=== PATIENT | male | born 2000 | race Caucasian/White ===

== ENCOUNTER 2024-02-20 15:41 | Emergency (ER) | payer BC, SELFPAY ==
[2024-02-20] MEDS ORDERED: CYCLOBENZAPRINE 10 MG TAB ONE (16:20)
--- NOTE | 2024-02-20 17:27 | RAD REPORT ---
Exam:Shoulder Right 2+ Views History: Right shoulder pain Findings: No fracture or dislocation seen
--- NOTE | 2024-02-20 17:27 | RAD REPORT ---
Exam:C Spine Ap/Lat CLINICAL INDICATION: Neck pain Findings: No fracture or dislocation seen
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
[2024-02-20] MEDS ORDERED: IBUPROFEN 400 MG TAB ONE (17:48)
[2024-02-20 21:04] VITALS: BP 137/65; TEMP 97.3; O2SAT 100
== END 2024-02-20 17:52 | disposition home or self-care (01) ==
LOC: ER 15:41
DX: M54.2 Cervicalgia (principal); M25.511 Pain in right shoulder; V49.40XA Driver injured in collision with unspecified motor vehicles in traffic accident, initial encounter
CPT/HCPCS: 72040; 99283

== ENCOUNTER 2024-05-28 15:01 | Emergency (ER) | payer BC ==
[2024-05-28] MEDS ORDERED: FAMOTIDINE 20 MG/2 ML VIAL IV ONE (15:08)
[2024-05-28 15:12] LABS: Absolute Basophils 0.1 K/uL (0-0.5); Absolute Eosinophils 0.5 K/uL (0-0.5); Absolute Lymphocytes (CBC) 2.7 K/uL (0.7-4.9); Absolute Neutrophil 7.1 K/uL (1.8-8.0); Basophils % 0.6 % (0-1.3); Eosinophils % 4.1 % (0-4.4); Hematocrit 44.5 % (39.6-49.0); Hemoglobin 15.5 g/dL (13.6-17.9); MCH 31.6 pg (27.0-35.0); MCHC 34.9 g/dL (32.0-36.0); MCV 90.5 fL (80-100); Monocytes % 9.1 % (3.3-12.3); Neutrophils % 62.2 % (41.7-73.7); Platelets 327 thou/uL (152-406); RBC Red Blood Cell Count 4.91 M/uL (4.33-5.43); Red Cell Distribution Width 13.4 % (12.1-15.2)
[2024-05-28 15:27] LABS: Anion Gap 9.4 mEq/L (5.0-15.0); Potassium 3.4 mEq/L (3.5-5.1)
--- NOTE | 2024-05-28 18:23 | EDPHYS ---
Physician Documentation [facility] Name: Abdulaziz Gomez Age: 24 yrs Sex: Male : 2000 Arrival Date: 05/28/2024 Time: 15:01 Bed 2 Private MD: ED Physician Rigo Killian HPI: 05/28 18:13 This 24 yrs old Male presents to ER via EMS with complaints of Allergic Reaction. ms3 18:13 Abdulaziz Gomez a 24-year-old male who presents to the Emergency Department with ms3 anaphylaxis. He reports that approximately two hours ago, he took propranolol, which resulted in full facial swelling, including the eyes, lips, tongue, and throat, as well as a full-body rash and diaphoresis. Initial treatment included administration of 0.3 mg of epinephrine intramuscularly. Upon arrival at the Emergency Department, due to persistent throat swelling, he received an additional 0.3 mg of epinephrine. Patient was given 125 ml SoluMedrol IV, and 50 mg Benadryl. He was also started on IV fluids, totaling approximately 600 ml. The patient reports improvement in throat symptoms and absence of wheezing, but he remains very tired. Earlier in the day, he received a flu shot.. Historical: - Allergies: 15:07 Propranolol; ss - Home Meds: 15:12 ibuprofen 800 mg Oral tablet as needed [Active]; melatonin 5 mg Oral capsule nightly iw [Active]; sertraline 100 mg oral tablet every morning [Active]; sertraline 50 mg oral tablet nightly [Active]; trazodone 100 mg Oral tablet every morning [Active]; trazodone 50 mg Oral tablet every day at bedtime [Active]; propranolol 10 mg Oral tablet daily [Active]; - PMHx: 15:07 Anxiety; chondral lesion on right knee (February 19); depressive disorder; left knee ss instability (growth hormone defi); PTSD; scoliosis (growth hormone defi); - PSHx: 15:07 Adenoid excision; Tonsillectomy; ss - Immunization history:: Adult Immunizations unknown. - Infectious Disease History:: Denies. - Social history:: Smoking status: Reported history of juuling and/or vaping. ROS: 18:13 Constitutional: Negative for fever, and chills. Cardiovascular: Negative for chest ms3 pain, and palpitations. 18:13 ENT: Positive for tongue swelling, lip swelling, 18:13 Respiratory: Positive for shortness of breath, wheezing, Exam: 18:13 Constitutional: This is a well developed, well nourished patient who is awake, alert, ms3 and in no acute distress. Chest/axilla: Normal chest wall appearance and motion. Nontender with no deformity. Cardiovascular: Regular rate and rhythm with a normal S1 and S2. No gallops, murmurs, or rubs. Normal PMI, no JVD. No pulse deficits. Respiratory: Lungs have equal breath sounds bilaterally, clear to auscultation and percussion. No rales, rhonchi or wheezes noted. No increased work of breathing, no retractions or nasal flaring. Skin: Warm, dry with normal turgor. Normal color with no rashes, no lesions, and no evidence of cellulitis. 18:13 Head/face: Lower lip swelling. Vital Signs: 15:02 BP 110 / 50; Pulse 78; Resp 14; Temp 97.2(O); Pulse Ox 99% on R/A; Weight 82.1 kg; ss Height 5 ft. 9 in. ; Pain 0/10; 16:35 BP 103 / 56; Pulse 68; Resp 16; Pulse Ox 96% on R/A; iw 18:50 BP 112 / 90; Pulse 71; Resp 16; Pulse Ox 97% on R/A; iw 19:20 BP 112 / 90; Pulse 79; Resp 18 S; Pulse Ox 99% on R/A; ha1 20:23 BP 117 / 69; Pulse 78; Resp 18 S; Pulse Ox 98% on R/A; ha1 21:42 BP 118 / 71; Pulse 78; Resp 16 S; Pulse Ox 98% on R/A; ha1 22:25 BP 124 / 81; Pulse 81; Resp 18 S; Pulse Ox 98% on R/A; ha1 15:02 Body Mass Index 26.73 (82.10 kg, 175.26 cm) ss 15:02 Pain Scale: Adult ss MDM: 15:02 Medical Screening Exam initiated ms3 18:13 Differential diagnosis: anaphylaxis, angioedema. Data reviewed: vital signs, nurses ms3 notes, lab test result(s), and as a result, I will transfer patient to [facility]- patient choice. Consideration of Admission/Observation Will transfer patient. I considered the following discharge prescriptions or medication management in the emergency department Medications were administered in the Emergency Department. See MAR. Counseling: I had a detailed discussion with the patient and/or guardian regarding the historical points, exam findings, and any diagnostic results supporting the discharge/admit diagnosis, lab results, Will transfer at patient's request to [facility]. 05/28 15:02 Order name: CBC with Diff; Complete Time: 15:31 ms3 05/28 15:02 Order name: BMP; Complete Time: 15:31 ms3 Administered Medications: 15:11 Drug: Famotidine IVP 20 mg IVP once; dilute with 10 mL 0.9% NaCl; give over 2 minutes iw Route: IVP; Site: right antecubital; 19:00 Follow up: Response: No adverse reaction; Marked relief of symptoms ha1 Disposition Summary: 05/28/24 18:23 Transfer Ordered Notes: Transfer Location: [facility] ms3 Reason: Higher level of care ms3 Condition: Stable ms3 Problem: new ms3 Symptoms: are unchanged ms3 Accepting Physician: (05/28/24 22:52) ha1 Diagnosis - Angioedema ms3 - Allergic Reaction ms3 Forms: - Medication Reconciliation Form ms3 - SBAR form ms3 Signatures: Dispatcher [employer] Leticia Hoyt RN Aisha Guevara RN Rigo Griffin DO DO ms3 Odessa Chang RN RN ha1 Corrections: (The following items were deleted from the chart) 22:52 18:23 ms3 ha1
--- NOTE | 2024-05-28 18:23 | ER ---
Nurse's Notes [facility] Name: Abdulaziz Gomez Age: 24 yrs Sex: Male : 2000 Arrival Date: 05/28/2024 Time: 15:01 Bed 2 Private MD: Diagnosis: Angioedema;Allergic Reaction Presentation: 05/28 15:02 Chief complaint: EMS states: Took first dose of prescribed Propranolol 2 hours ago and ss began to experience facial swelling, rash all over body. Coronavirus screen: Client denies travel out of the [place] in the last 14 days. Ebola Screen: Patient denies exposure to infectious person. Patient denies travel to an Ebola-affected area in the 21 days before illness onset. Onset: The symptoms/episode began/occurred 2 hour(s) ago. Anaphylaxis evaluation, angioedema. Initial Sepsis Screen: Does the patient meet any 2 criteria? No. Patient's initial sepsis screen is negative. Does the patient have a suspected source of infection? No. Patient's initial sepsis screen is negative. Risk Assessment: Do you want to hurt yourself or someone else? Patient reports no desire to harm self or others. Onset of symptoms was May 28, 2024. Care prior to arrival: Medication(s) given: Albuterol Neb x 1, Atrovent Neb x 1, Solu Medrol 125, Benadryl 25 mg IVP, 25 mg IM, 0.3 epi IM x 2 IV initiated. 20 GA, in the right antecubital area, Med neb given. Oxygen administered. via a nebulizer mask. 15:02 Method Of Arrival: EMS: [facility] ss 15:02 Acuity: BLAINE 1 ss Historical: - Allergies: 15:07 Propranolol; ss - Home Meds: 15:12 ibuprofen 800 mg Oral tablet as needed [Active]; melatonin 5 mg Oral capsule nightly iw [Active]; sertraline 100 mg oral tablet every morning [Active]; sertraline 50 mg oral tablet nightly [Active]; trazodone 100 mg Oral tablet every morning [Active]; trazodone 50 mg Oral tablet every day at bedtime [Active]; propranolol 10 mg Oral tablet daily [Active]; - PMHx: 15:07 Anxiety; chondral lesion on right knee (February 19); depressive disorder; left knee ss instability (growth hormone defi); PTSD; scoliosis (growth hormone defi); - PSHx: 15:07 Adenoid excision; Tonsillectomy; ss - Immunization history:: Adult Immunizations unknown. - Infectious Disease History:: Denies. - Social history:: Smoking status: Reported history of juuling and/or vaping. Screenin:09 [facility] ED Fall Risk Assessment (Adult) History of falling in the last 3 months, iw including since admission No falls in past 3 months (0 pts) Confusion or Disorientation No (0 pts) Intoxicated or Sedated No (0 pts) Impaired Gait No (0 pts) Mobility Assist Device Used No (0 pt) Altered Elimination No (0 pt) Score/Fall Risk Level 0 - 2 = Low Risk Oriented to surroundings, Maintained a safe environment. Abuse screen: Denies threats or abuse. Nutritional screening: No deficits noted. Tuberculosis screening: No symptoms or risk factors identified. Assessment: 15:03 General: Appears in no apparent distress. uncomfortable, Behavior is cooperative, iw drowsy. Neuro: Level of Consciousness is awake, obeys commands, Oriented to person, place, time. Cardiovascular: Patient's skin is warm and dry. Respiratory: Airway is patent Respiratory effort is even, unlabored. EENT: Eyes swelling to DEONNA eyelids. tongue swelling noted , lip swelling noted. Derm: Musculoskeletal: Range of motion: intact in all extremities. 15:14 Reassessment: Patient appears in no apparent distress at this time. Patient and/or iw family updated on plan of care and expected duration. Pain level reassessed. Patient is alert, oriented x 3, equal unlabored respirations, skin warm/dry/pink. 17:05 Reassessment: Patient appears in no apparent distress at this time. pt appears to be iw sleeping, awakens easily to tactile stimuli , bottom lip remains swollen, tongue swollen, not any worse or better than when he arrived. Pain: Denies pain. Respiratory: Breath sounds are clear. 19:19 General: Appears comfortable, Behavior is calm, cooperative. Pain: Denies pain. Neuro: ha1 Level of Consciousness is awake, alert, obeys commands, Oriented to person, place, time, situation. Cardiovascular: Patient's skin is warm and dry. Respiratory: Airway is patent Respiratory effort is even, unlabored, Respiratory pattern is regular, symmetrical. GI: No signs and/or symptoms were reported involving the gastrointestinal system. Derm: Skin is pink, warm \T\ dry. Musculoskeletal: Range of motion: intact in all extremities, Swelling present in mouth. 20:23 Reassessment: Patient and/or family updated on plan of care and expected duration. Pain ha1 level reassessed. Patient is alert, oriented x 3, equal unlabored respirations, skin warm/dry/pink. 21:20 Reassessment: Patient and/or family updated on plan of care and expected duration. Pain ha1 level reassessed. Patient is alert, oriented x 3, equal unlabored respirations, skin warm/dry/pink. 22:00 Reassessment: REPORT GIVEN TO RECEIVING NURSE. ha1 22:20 Reassessment: Patient and/or family updated on plan of care and expected duration. Pain ha1 level reassessed. Patient is alert, oriented x 3, equal unlabored respirations, skin warm/dry/pink. Patient denies pain at this time. Patient states feeling better. Patient states symptoms have improved. Vital Signs: 15:02 BP 110 / 50; Pulse 78; Resp 14; Temp 97.2(O); Pulse Ox 99% on R/A; Weight 82.1 kg; ss Height 5 ft. 9 in. ; Pain 0/10; 16:35 BP 103 / 56; Pulse 68; Resp 16; Pulse Ox 96% on R/A; iw 18:50 BP 112 / 90; Pulse 71; Resp 16; Pulse Ox 97% on R/A; iw 19:20 BP 112 / 90; Pulse 79; Resp 18 S; Pulse Ox 99% on R/A; ha1 20:23 BP 117 / 69; Pulse 78; Resp 18 S; Pulse Ox 98% on R/A; ha1 21:42 BP 118 / 71; Pulse 78; Resp 16 S; Pulse Ox 98% on R/A; ha1 22:25 BP 124 / 81; Pulse 81; Resp 18 S; Pulse Ox 98% on R/A; ha1 15:02 Body Mass Index 26.73 (82.10 kg, 175.26 cm) ss 15:02 Pain Scale: Adult ss ED Course: 15:02 Patient arrived in ED. ss 15:02 Rigo Killian DO is Attending Physician. ms3 15:02 Leticia Lopez, RICKEY is Primary Nurse. iw 15:03 Maintain EMS IV. Dressing intact. Good blood return noted. Site clean \T\ dry. Gauge \T\ iw site: 20 RAC. 15:04 Patient has correct armband on for positive identification. Provided Education on: iw labs. Client placed on continuous cardiac and pulse oximetry monitoring. NIBP monitoring applied. monitoring specialist on. 15:06 Triage completed. ss 15:07 Arm band placed on left wrist. ss 20:24 Talked to [facility], didn't receive fax. Resent fax. sp 21:44 Talked to [facility]. sp 21:51 Initiated DOC to DOC. sp 21:54 Transfer accepted to [facility] ER by Dr.Ali Dover, admin-[facility]. Report #[id number]. sp 22:23 Called [facility] for transfer to [facility] in [place], spoke with Ra. sp 22:51 No provider procedures requiring assistance completed. Patient transferred, IV remains ha1 in place. Administered Medications: 15:11 Drug: Famotidine IVP 20 mg IVP once; dilute with 10 mL 0.9% NaCl; give over 2 minutes iw Route: IVP; Site: right antecubital; 19:00 Follow up: Response: No adverse reaction; Marked relief of symptoms ha1 Medication: 15:09 VIS not applicable for this client. iw Outcome: 18:23 ER care complete, transfer ordered by . ms3 22:51 Transferred by ground EMS to [facility] Transfer form completed. ha1 X-rays sent w/ patient. 22:51 Condition: stable 22:51 Instructed on the need for transfer, Demonstrated understanding of instructions, 22:52 Patient left the ED. ha1 Signatures: Katarzyna Ricci Irene, RN RICKEY iw Aisha Hood, RN RN Rigo Killian DO DO ms3 Odessa Chang, RN RN ha1
[2024-05-28 23:19] VITALS: TEMP 97.2
[2024-05-28 23:24] VITALS: O2SAT 98
[2024-05-28 23:26] VITALS: BP 124/81
== END 2024-05-28 22:52 ==
LOC: ER 15:01
DX: T78.3XXA Angioneurotic edema, initial encounter (principal); R06.02 Shortness of breath; Z88.8 Allergy status to other drugs, medicaments and biological substances
CPT/HCPCS: 36415; 80048; 85025; 96374; 99285